=== PATIENT | female | born 1955 | race Two or more races ===

== ENCOUNTER 2021-04-02 21:47 | Emergency (ER) | payer OTHER ==
[~2021-04-02] VITALS: Ht 149.9 cm; Wt 77.1 kg
[2021-04-02] MEDS ORDERED: LEVOTHYROXINE50 MC1 (22:03)
[2021-04-02] MEDS ORDERED: OMEGA-31000 MG (22:04)
[2021-04-02] MEDS ORDERED: VITAMIN D310 MC4 (22:04)
[2021-04-02] MEDS ORDERED: VITAMIN E67 MG (22:04)
[2021-04-02] MEDS ORDERED: ISOSORBIDE DINI30 MG (22:04)
[2021-04-02] MEDS ORDERED: VITAMIN C100 MG (22:04)
[2021-04-02] MEDS ORDERED: ROSUVASTATIN-E1 EACH (22:05)
[2021-04-02] MEDS ORDERED: ZESTRIL2.5 MG (22:05)
[2021-04-02] MEDS ORDERED: ECOTRIN81 MG (22:05)
[2021-04-02] MEDS ORDERED: PLAVIX75 MG (22:05)
[2021-04-02] MEDS ORDERED: TOPROL XL25 M1 (22:06)
[2021-04-02] MEDS ORDERED: XANAX0.25 MG (22:07)
[2021-04-03] MEDS ORDERED: BACTRIM DS TAB1 EACH PO (02:22)
[2021-04-03] MEDS ORDERED: PYRIDIUM200 MG PO (02:22)
== END 2021-04-03 02:35 | disposition home or self-care (01) ==
LOC: ER 21:47
DX: N30.81 Other cystitis with hematuria (principal); B96.4 Proteus (mirabilis) (morganii) as the cause of diseases classified elsewhere